=== PATIENT | male | born 1985 | race Caucasian/White ===

== ENCOUNTER 2022-03-03 07:48 | Outpatient (REF) | payer OTHER, SELFPAY ==
[2022-03-03 08:48] LABS: Hematocrit 42.7 % (42.0-52.0); Hemoglobin 14.5 g/dl (14.0-18.0); Mean Corpuscular Hemoglobin 30.2 pg (27.0-33.0); Mean Platelet Volume 12.4 fL (9.4-12.4); Platelet Count 217 X10*3/uL (160-400); White Blood Count 6.8 X10*3/uL (4.8-10.8)
[2022-03-03 09:19] LABS: Alanine Aminotransferase 19 U/L (0-40); Albumin Level 4.3 g/dL (3.5-5.0); Alkaline Phosphatase 77 U/L (39-117); Anion Gap 15 (12-20); Aspartate Amino Transferase 15 U/L (5-37); Bilirubin Total 0.5 mg/dL (0.0-1.0); Blood Urea Nitrogen 13 mg/dL (9-16); Calcium 9.5 mg/dL (8.4-10.2); Carbon Dioxide 25 mmol/L (22-29); Chloride 107 mmol/L (96-108); Cholesterol 173 mg/dL; Estimated Glomerular Filt Rate > 60; Glucose Fasting 96 mg/dL (60-99); HDL Cholesterol 34 mg/dL; LDL Cholesterol Calculated 117 mg/dl; Potassium 4.7 mmol/L (3.3-5.1); Sodium 142 mmol/L (135-145); Total Protein 7.4 g/dL (6.5-8.0); Triglycerides 110 mg/dL
[2022-03-03 09:39] LABS: TSH reflex Free T4 1.19 uIU/mL (0.32-4.0)
== END 2022-03-03 07:49 | disposition home or self-care (01) ==
LOC: HO.LAB 07:48
PROVIDERS: PCP Physician Assistant; Visit Provider Physician Assistant
DX: Z13.29 Encounter for screening for other suspected endocrine disorder (principal); Z13.220 Encounter for screening for lipoid disorders
CPT/HCPCS: 36415; 80053; 80061; 84443; 85027

== ENCOUNTER 2023-12-15 09:43 | Outpatient (AMB) | payer OTHER, SELFPAY ==
--- NOTE | 2023-12-15 09:44 | MHC.PC.OV ---
Intake Visit Reasons: Anxiety/insomnia/meds Allergies Penicillins [PENICILLINS] Allergy (Mild, Verified 03/04/22 08:39) HIVES Tobacco use date assessed: 11/12/21 [facility] Surgical History No pertinent past surgical history Family History Mother No problems noted. Father Diabetes Social History Housing: House Alcohol intake: current Alcohol intake frequency: a few times a month Alcohol type: beer Patient Tobacco Use Status: Former Tobacco user Tobacco use type: Smokeless Tobacco e-Cigarette/Vaping Use: Currently Using Second Hand Smoke Exposure: No Substance Use Type: Marijuana service: No Current occupational status: employed Current occupation: [employer] Current occupational exposures/hazards: No Cognitive needs: No Hearing needs: No Vision needs: No Questionnaire Thrive Questionnaire Date Thrive assessed: 11/12/21 ANATOLIY-7 AMB Questionnaire ANATOLIY-7 Date ANATOLIY - 7 assessed: 11/12/21 Source: Developed by Drs. Adriano Kat, Liliana Anton, Angel Fischer and colleagues, with an educational kim from [employer]. Physical exam (Primary Care) Tobacco/Smoking Status: Tobacco use Status Tobacco use date assessed 11/12/21 03/04/22 08:34 Patient Tobacco Use Status Former Tobacco user 03/04/22 08:34 Tobacco use type Smokeless Tobacco 03/04/22 08:34 e-Cigarette/Vaping Use Currently Using 03/04/22 08:34 Thrive Assessment: Date of Thrive Assessment Date Thrive assessed 11/12/21 03/04/22 08:34 Coding
[2023-12-15 09:46] VITALS: BP 146/102; PULSE 100; O2SAT 98; BMI 38.4
--- NOTE | 2023-12-15 09:46 | MHC.PC.OV ---
Vital Signs 12/15/23 09:46 12/15/23 10:23 Height 5 ft 11 in Weight 275 lb 2 oz BMI 38.4 BP 146/102 H 128/80 Blood Pressure Location Lt brachial Position Sitting Pulse 100 Pulse Source Pulse Oximeter Pulse Oximetry (%) 98 Oxygen Delivery Method Room Air Intake Visit Reasons: PE/anxiety Drinking Water Technician Required: No Accompanied by: Self / Same As Patient Allergies Penicillins [PENICILLINS] Allergy (Mild, Verified 12/15/23 09:57) HIVES Medication List - Last Reconciled 12/15/23 by Kit Thomas PA-C No Known Home Meds Tobacco use date assessed: 12/15/23 Dental Screening Dental Screen Date: 12/15/23 Did you have a dental visit in the last 12 months?: Yes Did you have a dental problem in the last 6 months where you did not have access to dental care?: No Was dental information given to patient?: Patient has dentist HPI PE/anxiety HPI Details Patient is a 38 year male here today for routine annual physical. Patient has a past medical history difficult for obesity, generalized anxiety disorder, elevated blood pressure readings without diagnosis hypertension. .. Generalized anxiety disorder: He reports he is continues to suffer with anxiety which has worsened over last few months. He often has thoughts of losing his home and relationship family. He reports his anxiety is to the point it is hindering his job performance. He is now interested in starting medication. .. Elevated blood pressure readings: Noted elevated blood pressure today in office.. Repeat blood pressure reading normal. He feels he has had white coat hypertension Vaccines: Up-to-date with COVID vaccine, needs Tdap, considers flu vaccine this fall [facility] Surgical History No pertinent past surgical history Family History Mother No problems noted. Father Diabetes Social History (Updated 12/15/23 @ 10:01 by Kit Thomas PA-C) Housing: House Alcohol intake: current Alcohol intake frequency: a few times a month Alcohol type: beer Patient Tobacco Use Status: Former Tobacco user Tobacco use type: Smokeless Tobacco e-Cigarette/Vaping Use: Currently Using Second Hand Smoke Exposure: No Substance Use Type: Marijuana service: No Current occupational status: employed Current occupation: [employer] Current occupational exposures/hazards: No Cognitive needs: No Hearing needs: No Vision needs: No Questionnaire PHQ-9 Over the last 2 weeks, how often have you been bothered by any of the following problems? 1. Little interest or pleasure in doing things: nearly every day 2. Feeling down, depressed, or hopeless: nearly every day 3. Trouble falling or staying asleep, or sleeping too much: more than half the days 4. Feeling tired or having little energy: more than half the days 5. Poor appetite or overeating: more than half the days 6. Feeling bad about yourself - or that you are a failure or have let yourself or your family down: nearly every day 7. Trouble concentrating on things, such as reading the newspaper or watching television: nearly every day 8. Moving or speaking so slowly that other people could have noticed. Or the opposite - being so fidgety or restless that you have been moving around a lot more than usual: several days 9. Thoughts that you would be better off or of hurting yourself in some way: several days Total score: 20 Depression Screening Interpretation: Positive Depression Screening Follow-up: Existing condition and New Medication prescribed Depression Screening Done: Yes 85659 - PHQ-9 Billing: Yes Source: Developed by Drs. Adriano Kat, Liliana Anton, Angel Fischer and colleagues, with an educational kim from [employer]. Thrive Questionnaire Date Thrive assessed: 12/15/23 I am a: Patient What is your living situation today?: I have a steady place to live Within the past 12 months, did the food you bought not last and you didn't have the money to get more?: Never true Within the past 12 months, did you worry whether your food would run out before you got money to buy more?: Never true Do you have trouble paying for medicines?: No Do you have trouble getting transportation to medical appointments?: No Do you have trouble paying your heating and electricity bill?: No Do you have trouble taking care of your child, family member or friend?: No Do you have trouble with day-to-day activities such as bathing, preparing meals, shopping, managing finances, etc.?: No Are you currently unemployed and looking for a job?: No Are you interested in more education?: No Please select the resources that you would like help with: None Currently or been in a relationship where the following occur: No concerns reported THRIVE Score: 0 AUDIT C Alcohol Use Questionnaire (AUDIT-C) 1. How often do you have a drink containing alcohol?: Monthly or less 2. How many drinks containing alcohol do you have on a typical day when you are drinking?: 1 or 2 3. How often do you have six or more drinks on one occasion?: Never Total Score: 1 ANATOLIY-7 AMB Questionnaire ANATOLIY-7 Date ANATOLIY - 7 assessed: 12/15/23 Feeling nervous, anxious, or on edge: 3 = Nearly every day Not being able to stop or control worryin = Nearly every day Worrying too much about different things: 3 = Nearly every day Trouble relaxin = More than half the days Being so restless that it is hard to sit still: 1 = Several days Becoming easily annoyed or irritable: 2 = More than half the days Feeling afraid as if something awful might happen: 3 = Nearly every day Total ANATOLIY-7 score (0-4 normal; 5-9 mild; 10-14 moderate; 15-21 severe): 17 Source: Developed by Drs. Adriano Kat, Liliana Anton, Angel Fischer and colleagues, with an educational kim from [employer]. ANATOLIY-7 Assessment Billing ANATOLIY-7 Assessment Tool: ANATOLIY-7 Assessment 06901 Review of Systems Const Denies body aches, Denies chills, Denies excessive sweating, Denies fatigue, Denies fever(s) and Denies headache(s) Eyes Denies blurry vision ENT Denies dysphagia, Denies vertigo, Denies dizziness, Denies headache(s), Denies hearing loss and Denies tinnitus Card Denies chest pain, Denies chest pain with activity, Denies syncope, Denies irregular heart rhythm and Denies dyspnea Resp Denies chest congestion, Denies cough, Denies hemoptysis, Denies dyspnea and Denies wheezing GI Denies abdominal pain, Denies melena, Denies hematochezia, Denies coffee ground emesis, Denies dysphagia, Denies diarrhea, Denies nausea and Denies vomiting Reports change in libido, Denies difficulty urinating, Denies dysuria, Denies urinary frequency, Denies urinary hesitancy and Denies urinary urgency Musc Denies arthralgias, Denies limited range of motion, Denies muscle cramps and Denies muscle weakness Skin/Breast Denies rash and Denies skin ulcer Neuro Denies Abnormal speech present, Denies confusion, Denies vertigo, Denies dizziness, Denies syncope, Denies headache(s), Denies memory loss and Denies seizure-like activity Psych Reports anxiety, Reports change in libido, Denies confusion, Reports depression, Reports difficulty concentrating, Denies memory loss, Reports panic attacks and Denies paranoia Endo Reports change in libido, Denies excessive sweating, Denies fatigue, Denies flushing, Denies polydipsia and Denies polyuria Aller/Immun Denies wheezing Physical exam (Primary Care) Vital Signs: Last Vital Signs Pulse 100 12/15/23 09:46 BP 146/102 H 12/15/23 09:46 Pulse Ox 98 12/15/23 09:46 Oxygen Delivery Method Room Air 12/15/23 09:46 BMI result Body Mass Index 38.4 Tobacco/Smoking Status: Tobacco use Status Tobacco use date assessed 12/15/23 12/15/23 09:54 Patient Tobacco Use Status Former Tobacco user 12/15/23 09:54 Tobacco use type Smokeless Tobacco 12/15/23 09:54 e-Cigarette/Vaping Use Currently Using 12/15/23 09:54 PHQ-9: PHQ-9 Score PHQ-9: Total score 20 12/15/23 09:54 Depression Screening Interpretation: Positive Depression Screening Follow-up: Existing condition and New Medication prescribed Thrive Assessment: Date of Thrive Assessment Date Thrive assessed 12/15/23 12/15/23 09:54 Currently or been in a relationship where the following occur: No concerns reported Const General: cooperative, comfortable, no acute distress, alert and awake; No confusion Orientation/consciousness: oriented to person, oriented to place, patient oriented x3 and No confusion HENMT Head: Yes normocephalic Ears: external ears normal and TM's normal bilaterally Face and sinus: No sinus tenderness Mouth: Normal oral and palatal mucosa present and tongue normal Teeth and gingiva: dentition normal and gingiva normal Throat: Yes posterior oropharynx normal, Yes tonsils normal and Yes uvula midline Eyes Conjunctivae: conjunctivae normal Sclerae: sclerae normal Pupils: Equal, round and reactive pupils present EOM: EOMs intact bilaterally Direct Ophthalmoscopy: No no photophobia Neck Neck: Yes no lymphadenopathy, No tender and Yes no JVD Thyroid: Thyroid normal Carotids: no bruits Chest Chest palpation & inspection: no tenderness Resp Effort & Inspection: normal respiratory effort, no audible wheezes, not labored and no stridor Auscultation: no crackles, no rales, no rhonchi and no wheezes Cardio Jugular venous distension: no JVD Rate: regular rate, not bradycardic and not tachycardic Rhythm: regular rhythm Bruits: no carotid bruits Peripheral pulses: Peripheral pulses 2+ throughout GI Inspection: Yes normal to inspection, No abdominal wall ecchymosis and No visible herniation Palpation (GI): Soft to palpation, nontender, no guarding, not rigid and No hepatosplenomegaly present Auscultation: normoactive bowel sounds General: Yes no CVA tenderness Back/Spine/Pelvis Back: no CVA tenderness and No back tenderness Cervical Spine: cervical ROM normal Thoracic/Lumbar Spine: thoracic and lumbar spine normal to inspection, straight leg raise negative bilaterally, No thoraco-lumbar ROM limited and No lumbar spinal tenderness Skin Lesions: no lesions Rashes: no rashes Wounds: no wounds Neuro General: oriented to person, oriented to place, patient oriented x3, CN's II-XI intact bilaterally and No confusion Cranial nerves: Yes Equal, round and reactive pupils present and Yes Normal accommodation reflex present Cognition (Neuro): normal cognition Speech: No Abnormal speech present Gait exam (Neuro): Normal gait present Motor exam (neuro): 5/5 motor strength present throughout Extrem Right upper extremity: full ROM; no cyanosis Left upper extremity: full ROM; no cyanosis Right lower extremity: no edema Left lower extremity: no edema Psych Appearance: grossly normal Mental Status: mental status grossly normal Affect: normal affect Attitude: cooperative Thought process: Normal thought process present Assessment and Plan Assessment & Plan (1) Annual physical exam: Code(s): Z00.00 - Encounter for general adult medical examination without abnormal findings (2) ANATOLIY (generalized anxiety disorder): Code(s): F41.1 - Generalized anxiety disorder Plan: Patient's ANATOLIY-7 score positive for anxiety which has been existing condition for him. Continues to suffer with thoughts of losing his home and relationships with family. He feels this is taken an effect on his job performance.. Patient reports he does suffer from generalized anxiety and is not sure if you gain any benefit from cognitive behavioral therapy he is interested in starting medication to help him with his anxiety. Will start with Zoloft 50 mg and follow up patient in 4 weeks to evaluate benefit of the medication. (3) Allergic rhinitis: Code(s): J30.9 - Allergic rhinitis, unspecified Qualifiers: Allergic rhinitis trigger: pollen Allergic rhinitis seasonality: seasonal Qualified Code(s): J30.1 - Allergic rhinitis due to pollen Plan: Patient's signs and symptoms are most consistent with allergic rhinitis. Advised on allergy nasal spray along with his oral antihistamine therapy. (4) Screening for diabetes mellitus (DM): Code(s): Z13.1 - Encounter for screening for diabetes mellitus (5) MDD (major depressive disorder), recurrent episode, mild: Code(s): F33.0 - Major depressive disorder, recurrent, mild Plan: Patient's PHQ-9 score positive for depression which has been existing condition for him. He is willing to start up with SSRI therapy. Orders: Orders Comprehensive [place]. Panel Fast Today Z13.1 - Encounter for screening for diabetes mellitus Complete Blood Count no Diff Today Z13.1 - Encounter for screening for diabetes mellitus Medications: New sertraline 50 mg PO DAILY 30 days 30 tabs 1RF F33.0 - Major depressive disorder, recurrent, mild Coding Level of Care Code Est Pt Prev Care 40-64y(78009) Diagnoses Annual physical exam Z00.00 ANATOLIY (generalized anxiety disorder) F41.1 Seasonal allergic rhinitis due to pollen J30.1 Allergic rhinitis trigger: pollen Allergic rhinitis seasonality: seasonal Screening for diabetes mellitus (DM) Z13.1 MDD (major depressive disorder), recurrent episode, mild F33.0 Additional Codes ANATOLIY-7 Assessment Billing - ANATOLIY-7 Assessment Tool: ANATOLIY-7 Assessment [id number] ([id number])
[2023-12-15 10:23] VITALS: BP 128/80
== END 2023-12-15 10:32 | disposition home or self-care (01) ==
PROVIDERS: PCP Physician Assistant; Visit Provider Physician Assistant
DX: Z00.00 Encounter for general adult medical examination without abnormal findings (principal); F41.1 Generalized anxiety disorder; J30.1 Allergic rhinitis due to pollen; F33.0 Major depressive disorder, recurrent, mild
CPT/HCPCS: 96127; 99396

== ENCOUNTER 2024-01-12 13:39 | Outpatient (AMB) | payer OTHER, SELFPAY ==
--- NOTE | 2024-01-12 13:38 | A.OFFPC_ITS ---
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 At last visit we discussed his depression and anxiety and he was interested in starting a medication to help him with his mental health. We started sertraline 50 mg. He does report feeling a small GI side effect of loose stool in more frequent though. He feels that were some small benefit in reducing his depression and anxiety. He reports his mental health is tolerable now. For now will continue current dose of 50 mg to see if it takes a better effect. Will follow-up with us on the portal in the next few weeks. [facility] Surgical History No pertinent past surgical history Family History Mother No problems noted. Father Diabetes Social History Housing: House Alcohol intake: current Alcohol intake frequency: a few times a month Alcohol type: beer Patient Tobacco Use Status: Former Tobacco user Tobacco use type: Smokeless Tobacco e-Cigarette/Vaping Use: Currently Using Second Hand Smoke Exposure: No Substance Use Type: Marijuana service: No Current occupational status: employed Current occupation: [employer] Current occupational exposures/hazards: No Cognitive needs: No Hearing needs: No Vision needs: No Questionnaire Thrive Questionnaire Date Thrive assessed: 12/15/23 ANATOLIY-7 AMB Questionnaire ANATOLIY-7 Date ANATOLIY - 7 assessed: 12/15/23 Source: Developed by Drs. Adriano Kat, Liliana Anton, Angel Fischer and colleagues, with an educational kim from [employer]. Review of Systems Const Denies headache(s) Eyes Denies loss of vision ENT Denies vertigo, Denies dizziness, Denies headache(s) and Denies sore throat Card Denies chest pain, Denies leg edema and Denies lightheadedness Resp Denies cough, Denies hemoptysis and Denies wheezing GI Denies abdominal pain, Denies melena, Denies constipation, Denies diarrhea and Denies vomiting Denies dysuria, Denies urinary frequency and Denies urinary urgency Musc Denies arthralgias, Denies joint swelling, Denies numbness and Denies tingling Neuro Denies behavioral changes, Denies vertigo, Denies dizziness, Denies headache(s), Denies loss of vision, Denies memory loss, Denies numbness and Denies tingling Psych Denies anxiety, Denies behavioral changes, Denies depression, Denies memory loss and Denies panic attacks Max/Lymph Denies easy bleeding and Denies easy bruising Aller/Immun Denies wheezing Physical exam (Primary Care) Tobacco/Smoking Status: Tobacco use Status Tobacco use date assessed 12/15/23 01/12/24 13:38 Patient Tobacco Use Status Former Tobacco user 01/12/24 13:38 Tobacco use type Smokeless Tobacco 01/12/24 13:38 e-Cigarette/Vaping Use Currently Using 01/12/24 13:38 Thrive Assessment: Date of Thrive Assessment Date Thrive assessed 12/15/23 01/12/24 13:38 Telehealth Telehealth Telehealth Platform: Telephone Location of provider rendering services: practice address Location of patient: address on file Patient Identification confirmed using: Name, : Yes Telehealth method: voice only Patient verbally consented to treatment: Yes Patient verbally consented to billing insurance company: Yes Patient informed of any privacy concerns related to visit: Yes Minutes spent on Phone/Video with Pt.: 11 Assessment and Plan Assessment & Plan (1) ANATOLIY (generalized anxiety disorder): Code(s): F41.1 - Generalized anxiety disorder Plan: Has started sertraline 50 mg and has noted to be less anxious and depressed. He feels that his mental health is more manageable though would like a better effect. Will continue 50 mg over the next 3-4 weeks and follow-up with me on the portal to see if he would like a higher dose 100 mg. Of note does have a side effect of loose stool to which she will try a probiotic and stool bulking agent for. Coding Level of Care Code Tele Est Pt Level 3 (13888) Diagnoses ANATOLIY (generalized anxiety disorder) F41.1
== END 2024-01-12 15:25 | disposition home or self-care (01) ==
LOC: HO.HMGH 13:39
PROVIDERS: PCP Physician Assistant; Visit Provider Physician Assistant
DX: F41.1 Generalized anxiety disorder (principal)
CPT/HCPCS: 99442

== ENCOUNTER 2024-12-18 08:48 | Outpatient (AMB) | payer OTHER, SELFPAY ==
--- NOTE | 2024-12-18 08:56 | MHC.PC.OV ---
Vital Signs 12/18/24 08:57 Height 5 ft 11 in Weight 286 lb 8 oz BMI 40.0 BP 132/80 Blood Pressure Location Lt brachial Position Sitting Pulse 97 Pulse Source Pulse Oximeter Temp 97.1 F Temp Source Temporal Artery Scan Pulse Oximetry (%) 95 Oxygen Delivery Method Room Air Intake Visit Reasons: Annual Exam Intake Note: Patient is here today for a physical. 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 Accompanied by: Self / Same As Patient Allergies Penicillins (PENICILLINS) Allergy (Mild, Verified 12/18/24 09:26) HIVES Medication List - Last Reconciled 12/18/24 by Kit Thomas PA-C sertraline 100 mg PO DAILY 90 days Tobacco use date assessed: 12/18/24 Dental Screening Dental Screen Date: 12/18/24 Did you have a dental visit in the last 12 months?: Yes Did you have a dental problem in the last 6 months where you did not have access to dental care?: No Was dental information given to patient?: Patient has dentist HPI Annual Exam HPI Details Patient is a 39 year male here today for routine annual physical. Patient has a past medical history difficult for obesity, generalized anxiety disorder, elevated blood pressure readings without diagnosis hypertension. Concern--> The patient reports concerns about possible sleep apnea, as his partner has observed episodes of apnea during sleep. He experiences persistent daytime fatigue and poor sleep quality, which he attributes to weight gain and decreased physical activity. .. Generalized anxiety disorder: The patient has a history of anxiety, which is currently managed with medication. He reports improvement in his anxiety symptoms, although he still experiences some anxiety. . Class 3 obesity: Patient has unfortunately gained weight since last office visit. Reports he got a gym membership and he has will be getting in June of 2025 in his motivated to lose weight. .. Vaccines: Up-to-date with COVID vaccine, needs Tdap-declines today, considers flu vaccine this fall [facility] Surgical History No pertinent past surgical history Family History Mother No problems noted. Father Diabetes Social History (Updated 12/18/24 @ 09:30 by Kit Thomas PA-C) Housing: House Alcohol intake: current Alcohol intake frequency: a few times a month Alcohol type: beer Patient Tobacco Use Status: Former Tobacco user Tobacco use type: Smokeless Tobacco e-Cigarette/Vaping Use: Currently Using Second Hand Smoke Exposure: No Substance Use Type: Marijuana service: No Current occupational status: employed Current occupation: [employer] Current occupational exposures/hazards: No Cognitive needs: No Hearing needs: No Vision needs: No Questionnaire PHQ-9 Over the last 2 weeks, how often have you been bothered by any of the following problems? 1. Little interest or pleasure in doing things: several days 2. Feeling down, depressed, or hopeless: several days 3. Trouble falling or staying asleep, or sleeping too much: not at all 4. Feeling tired or having little energy: several days 5. Poor appetite or overeating: several days 6. Feeling bad about yourself - or that you are a failure or have let yourself or your family down: several days 7. Trouble concentrating on things, such as reading the newspaper or watching television: several days 8. Moving or speaking so slowly that other people could have noticed. Or the opposite - being so fidgety or restless that you have been moving around a lot more than usual: not at all 9. Thoughts that you would be better off or of hurting yourself in some way: not at all Total score: 6 Depression Screening Interpretation: Positive Depression Screening Follow-up: Existing condition and In treatment Depression Screening Done: Yes 56381 - PHQ-9 Billing: Yes Source: Developed by Drs. Adriano Kat, Liliana Anton, Angel Fischer and colleagues, with an educational kim from [employer]. Thrive Questionnaire Date Thrive assessed: 12/12/24 I am a: Patient What is your living situation today?: I have a steady place to live Within the past 12 months, did the food you bought not last and you didn't have the money to get more?: Never true Within the past 12 months, did you worry whether your food would run out before you got money to buy more?: Never true Do you have trouble paying for medicines?: No Do you have trouble getting transportation to medical appointments?: No Do you have trouble paying your heating and electricity bill?: No Do you have trouble taking care of your child, family member or friend?: No Do you have trouble with day-to-day activities such as bathing, preparing meals, shopping, managing finances, etc.?: No Are you currently unemployed and looking for a job?: No Are you interested in more education?: I choose not to answer this question Please select the resources that you would like help with: None Currently or been in a relationship where the following occur: No concerns reported THRIVE Score: 0 AUDIT C Alcohol Use Questionnaire (AUDIT-C) 1. How often do you have a drink containing alcohol?: Monthly or less 2. How many drinks containing alcohol do you have on a typical day when you are drinking?: 3 or 4 3. How often do you have six or more drinks on one occasion?: Less than monthly Total Score: 3 ANATOLIY-7 AMB Questionnaire ANATOLIY-7 Date ANATOLIY - 7 assessed: 12/18/24 Feeling nervous, anxious, or on edge: 2 = More than half the days Not being able to stop or control worryin = More than half the days Worrying too much about different things: 2 = More than half the days Trouble relaxin = Several days Being so restless that it is hard to sit still: 1 = Several days Becoming easily annoyed or irritable: 1 = Several days Feeling afraid as if something awful might happen: 1 = Several days Total ANATOLIY-7 score (0-4 normal; 5-9 mild; 10-14 moderate; 15-21 severe): 10 Source: Developed by Drs. Adriano Kat, Liliana Anton, Angel Fischer and colleagues, with an educational kim from [employer]. ANATOLIY-7 Assessment Billing ANATOLIY-7 Assessment Tool: ANATOLIY-7 Assessment 80925 Review of Systems Const Denies body aches, Denies chills, Denies excessive sweating, Reports fatigue, Denies fever(s) and Denies headache(s) Eyes Denies blurry vision ENT Denies dysphagia, Denies vertigo, Denies dizziness, Denies headache(s), Denies hearing loss and Denies tinnitus Card Denies chest pain, Denies chest pain with activity, Denies syncope, Denies irregular heart rhythm and Denies dyspnea Resp Denies chest congestion, Denies cough, Denies hemoptysis, Denies dyspnea and Denies wheezing GI Denies abdominal pain, Denies melena, Denies hematochezia, Denies coffee ground emesis, Denies dysphagia, Denies diarrhea, Denies nausea and Denies vomiting Denies difficulty urinating, Denies dysuria, Denies urinary frequency, Denies urinary hesitancy and Denies urinary urgency Musc Denies arthralgias, Denies limited range of motion, Denies muscle cramps and Denies muscle weakness Skin/Breast Denies rash and Denies skin ulcer Neuro Denies Abnormal speech present, Denies confusion, Denies vertigo, Denies dizziness, Denies syncope, Denies headache(s), Denies memory loss and Denies seizure-like activity Psych Denies anxiety, Denies confusion, Denies depression, Denies memory loss, Denies panic attacks and Denies paranoia Endo Denies excessive sweating, Reports fatigue, Denies flushing, Denies polydipsia and Denies polyuria Aller/Immun Denies wheezing Physical exam (Primary Care) Vital Signs: Last Vital Signs Temp 97.1 F 12/18/24 08:57 Pulse 97 12/18/24 08:57 BP 132/80 12/18/24 08:57 Pulse Ox 95 12/18/24 08:57 Oxygen Delivery Method Room Air 12/18/24 08:57 BMI result Body Mass Index 40.0 BMI Assessment/Plan discussion: High BMI High, discussed plan: lifestyle, weight reduction, dietary and physical activity Tobacco/Smoking Status: Tobacco use Status Tobacco use date assessed 12/18/24 12/18/24 09:04 Patient Tobacco Use Status Former Tobacco user 12/18/24 09:04 Tobacco use type Smokeless Tobacco 12/18/24 09:04 e-Cigarette/Vaping Use Currently Using 12/18/24 09:04 PHQ-9: PHQ-9 Score PHQ-9: Total score 6 12/18/24 09:04 Depression Screening Interpretation: Positive Depression Screening Follow-up: Existing condition and In treatment Thrive Assessment: Date of Thrive Assessment Date Thrive assessed 12/12/24 12/18/24 09:04 Currently or been in a relationship where the following occur: No concerns reported Const General: cooperative, comfortable, no acute distress, alert and awake; No confusion Orientation/consciousness: oriented to person, oriented to place, patient oriented x3 and No confusion HENMT Head: Yes normocephalic Ears: external ears normal and TM's normal bilaterally Face and sinus: No sinus tenderness Mouth: Normal oral and palatal mucosa present and tongue normal Teeth and gingiva: dentition normal and gingiva normal Throat: Yes posterior oropharynx normal, Yes tonsils normal and Yes uvula midline Eyes Conjunctivae: conjunctivae normal Sclerae: sclerae normal Pupils: Equal, round and reactive pupils present EOM: EOMs intact bilaterally Direct Ophthalmoscopy: No no photophobia Neck Neck: Yes no lymphadenopathy, No tender and Yes no JVD Thyroid: Thyroid normal Carotids: no bruits Chest Chest palpation & inspection: no tenderness Resp Effort & Inspection: normal respiratory effort, no audible wheezes, not labored and no stridor Auscultation: no crackles, no rales, no rhonchi and no wheezes Cardio Jugular venous distension: no JVD Rate: regular rate, not bradycardic and not tachycardic Rhythm: regular rhythm Bruits: no carotid bruits Peripheral pulses: Peripheral pulses 2+ throughout GI Inspection: Yes normal to inspection, No abdominal wall ecchymosis and No visible herniation Palpation (GI): Soft to palpation, nontender, no guarding, not rigid and No hepatosplenomegaly present Auscultation: normoactive bowel sounds General: Yes no CVA tenderness Back/Spine/Pelvis Back: no CVA tenderness and No back tenderness Cervical Spine: cervical ROM normal Thoracic/Lumbar Spine: thoracic and lumbar spine normal to inspection, straight leg raise negative bilaterally, No thoraco-lumbar ROM limited and No lumbar spinal tenderness Skin Lesions: no lesions Rashes: no rashes Wounds: no wounds Neuro General: oriented to person, oriented to place, patient oriented x3, CN's II-XI intact bilaterally and No confusion Cranial nerves: Yes Equal, round and reactive pupils present and Yes Normal accommodation reflex present Cognition (Neuro): normal cognition Speech: No Abnormal speech present Gait exam (Neuro): Normal gait present Motor exam (neuro): 5/5 motor strength present throughout Extrem Right upper extremity: full ROM; no cyanosis Left upper extremity: full ROM; no cyanosis Right lower extremity: no edema Left lower extremity: no edema Psych Appearance: grossly normal Mental Status: mental status grossly normal Affect: normal affect Attitude: cooperative Thought process: Normal thought process present Coding Level of Care Code Est Pt Prev Care 40-64y(51551) Diagnoses Annual physical exam Z00.00 TERRY (obstructive sleep apnea) G47.33 ANATOLIY (generalized anxiety disorder) F41.1 Smokeless tobacco use Z72.0 Class 3 obesity E66.813 MDD (major depressive disorder), recurrent episode, mild F33.0 Additional Codes PHQ-9 - 49521 - PHQ-9 Billing: Yes ([id number]) ANATOLIY-7 Assessment Billing - ANATOLIY-7 Assessment Tool: ANATOLIY-7 Assessment 64990 ([id number]) Assessment & Plan Assessment & Plan (1) Annual physical exam: Code(s): Z00.00 - Encounter for general adult medical examination without abnormal findings Category: Medical Plan: As per HPI (2) TERRY (obstructive sleep apnea): Code(s): G47.33 - Obstructive sleep apnea (adult) (pediatric) Category: Medical Plan: A home sleep study was recommended to evaluate for sleep apnea, given the patient's reported symptoms and partner's observations. The patient was advised that the study would assess oxygen levels, movement, and apneic episodes during sleep. (3) ANATOLIY (generalized anxiety disorder): Code(s): F41.1 - Generalized anxiety disorder Category: Medical Plan: Patient's ANATOLIY-7 score positive for anxiety which has been existing condition for him. The patient's anxiety is currently managed with medication, which has resulted in symptom improvement. Continued monitoring and annual follow-up were advised to ensure ongoing management. (4) Smokeless tobacco use: Code(s): Z72.0 - Tobacco use Category: Social Hx Plan: He does admit to using smokeless tobacco on a daily basis. He does understand he needs to quit and will try to wean down. (5) Class 3 obesity: Code(s): E66.813 - Obesity, class 3 Category: Medical Plan: Freddy does understand his BMI is over 40 and will work on being more physically active and adapting to better eating habits to reduce his weight (6) MDD (major depressive disorder), recurrent episode, mild: Code(s): F33.0 - Major depressive disorder, recurrent, mild Category: Medical Plan: Patient's PHQ-9 score positive for depression which has been existing condition for him. Has been much better since starting SSRI therapy. Not interested in mental health therapy at this time. Orders: Orders Complete Blood Count no Diff Today Z13.1 - Encounter for screening for diabetes mellitus Comprehensive [place]. Panel Fast Today Z13.1 - Encounter for screening for diabetes mellitus RT home sleep study Today G47.33 - Obstructive sleep apnea (adult) (pediatric)
[2024-12-18 08:57] VITALS: BP 132/80; PULSE 97; TEMP 36.2; O2SAT 95; BMI 40.0
== END 2024-12-18 09:39 | disposition home or self-care (01) ==
LOC: HO.HMCH 08:49
PROVIDERS: PCP Physician Assistant; Visit Provider Physician Assistant
DX: Z00.00 Encounter for general adult medical examination without abnormal findings (principal); G47.33 Obstructive sleep apnea (adult) (pediatric); F41.1 Generalized anxiety disorder; Z72.0 Tobacco use; E66.813 Obesity, class 3; F33.0 Major depressive disorder, recurrent, mild

== ENCOUNTER → 2024-12-18 08:48 | Outpatient (BNVA) | payer OTHER, SELFPAY | PROVIDERS: PCP Physician Assistant; Visit Provider Physician Assistant | DX: Z00.00 Encounter for general adult medical examination without abnormal findings (principal); F41.1 Generalized anxiety disorder; R03.0 Elevated blood-pressure reading, without diagnosis of hypertension; G47.30 Sleep apnea, unspecified; E66.813 Obesity, class 3; G47.33 Obstructive sleep apnea (adult) (pediatric); F33.0 Major depressive disorder, recurrent, mild; F17.290 Nicotine dependence, other tobacco product, uncomplicated; Z68.41 Body mass index [BMI] 40.0-44.9, adult | CPT/HCPCS: 96127 ==

== ENCOUNTER → 2025-03-12 11:12 | Outpatient (REF) | payer OTHER, SELFPAY | LOC: HO.SL 11:12 | PROVIDERS: PCP Physician Assistant; Visit Provider Physician Assistant | DX: G47.33 Obstructive sleep apnea (adult) (pediatric) (principal) | CPT/HCPCS: 95806 ==

== ENCOUNTER → 2025-03-12 11:23 | Outpatient (BNV) | payer OTHER, SELFPAY | PROVIDERS: PCP Physician Assistant; Visit Provider Internal Medicine | DX: G47.33 Obstructive sleep apnea (adult) (pediatric) (principal) | CPT/HCPCS: 95806 ==

== ENCOUNTER → 2025-04-09 20:30 | Outpatient (REF) | payer OTHER, SELFPAY | LOC: HO.SL 20:30 | PROVIDERS: PCP Physician Assistant; Visit Provider Physician Assistant | DX: G47.33 Obstructive sleep apnea (adult) (pediatric) (principal) | CPT/HCPCS: 95811 ==

== ENCOUNTER → 2025-04-09 21:38 | Outpatient (BNV) | payer OTHER, SELFPAY | PROVIDERS: PCP Physician Assistant; Visit Provider Internal Medicine | DX: G47.33 Obstructive sleep apnea (adult) (pediatric) (principal) | CPT/HCPCS: 95811 ==